=== PATIENT | female | born 1970 | race Caucasian/White ===

== ENCOUNTER → 2018-06-20 | Outpatient (CLI) | payer BC ==
[~2018-06-20] MED LIST: [UNRECOGNIZED DRUG - CODE] TP
--- NOTE | 2018-06-20 14:01 | RADIOLOGY IMAGING REPORT ---
FACILITY: [facility] [place] PATIENT NAME: BARRY NAVARRO : [id number] MR: [id number] V: [id number] EXAM DATE: [id number] ORDERING PHYSICIAN: INDIO CREWS TECHNOLOGIST: Marti Mckeon PROCEDURE:BILATERAL DIGITAL SCREENING MAMMOGRAM WITH CAD ASSISTED INTERPRETATION & 3D TOMOSYNTHESIS COMPARISON:05/31/17, 05/10/17, 04/26/16 VIEWS OBTAINED: Bilateral 2D full field CC & MLO & corresponding 3D tomography INDICATIONS:screening/Family history postmenopausal breast carcinoma in mother at age 60. TISSUE DENSITY: Heterogeneously dense which may obscure small masses. FINDINGS: There is no mammographic finding suspicious for malignancy & no significant change compared to prior mammograms. DIAGNOSTIC CATEGORY 1--NEGATIVE. RECOMMENDATIONS: ROUTINE ANNUAL BILATERAL MAMMOGRAM AND CLINICAL EVALUATION. IMPRESSION: BIRADS 1: Negative. Dictated by: Marsha Talbot M.D. on 06/20/2018 at 10:10 Transcribed by: KINDRA on 06/20/2018 at 13:18 Approved by: Marsha Talbot M.D. on 06/20/2018 at 14:01 [facility]
== END ==
LOC: MAMO 04:27
PROVIDERS: ATTEND Nurse Practitioner Psychiatric/Mental Health
DX: Z12.31 Encounter for screening mammogram for malignant neoplasm of breast (principal)
CPT/HCPCS: 77063; 77067